=== PATIENT | male | born 1955 | race Caucasian/White ===

== ENCOUNTER 2017-08-23 12:46 | Emergency (ER) | payer MEDICARE, OTHER ==
[2017-08-23] MEDS ORDERED: Lidocaine 1% 50 ML MDV INJECT ONE (13:11)
--- NOTE | 2017-08-23 13:12 | EDM.PDOC ---
ED HPI GENERAL MEDICAL PROBLEM - General Chief Complaint: Upper Extremity Injury/Pain Stated Complaint: RT RING FINGER LAC Time Seen by Provider: 08/23/17 13:07 Source of Information: Reports: Patient History Limitations: Reports: No Limitations - History of Present Illness INITIAL COMMENTS - FREE TEXT/NARRATIVE: 62-year-old male presents for evaluation amd treatment of injury to the right hand fourth finger. Reportedly the injury occurred around 11:00 today. States that the finger was smashed between a piece of pipe and a calves' head. He has a laceration to the right hand fourth finger just proximal to the PIP joint. He has full range of motion. No numbness or tingling. patient reports he is right-handed. Reports that his last tetanus was a few years ago. Onset: Today Location: Reports: Upper Extremity, Right Right Hand Pain Score (Numeric/FACES): 4 - Related Data Allergies Allergy/AdvReac Type Severity Reaction Status Date / Time codeine Allergy Itching Verified 08/23/17 13:01 Home Meds: Home Meds Naproxen Sodium 220 mg PO DAILY 08/23/17 [History] Past Medical History - Infectious Disease History Infectious Disease History: Reports: Chicken Pox, Measles, Mumps - Past Surgical History Musculoskeletal Surgical History: Reports: Other (See Below) Other Musculoskeletal Surgeries/Procedures:: rt hand surgery Social & Family History - Tobacco Use Smoking Status *Q: Current Every Day Smoker Years of Tobacco use: 40 Packs/Tins Daily: 1 - Caffeine Use Caffeine Use: Reports: Coffee - Recreational Drug Use Recreational Drug Use: No Review of Systems - Review of Systems Review Of Systems: See Below Skin: Reports: Wound (laceration to the right hand 4th finger just proximal to the PIP joint on the dorsal side) Neurological: Denies: Numbness, Tingling ED EXAM, GENERAL - Physical Exam Exam: See Below Exam Limited By: No Limitations General Appearance: Alert, WD/WN, No Apparent Distress Respiratory/Chest: No Respiratory Distress Cardiovascular: Normal Peripheral Pulses, Regular Rate, Rhythm Peripheral Pulses: 2+: Radial (R) Extremities: Normal Range of Motion (joana to make a fist, flex and extend fingers and abduct and adduct fingers of the left hand), Normal Capillary Refill Neurological: Alert, Oriented, Normal Cognition Psychiatric: Normal Affect, Normal Mood Skin Exam: Warm, Dry, Normal Color, Wound/Incision (2cm open subcutaneous laceration to the right hand 4th finger dorsal just proximal to the pip joint) ED TRAUMA EXTREMITY PROCEDURES - Laceration/Wound Repair Right Proximal Dorsal Finger Lac/Wound Length In cm: 2 Appearance: Subcutaneous, Linear Distal NVT: Neuro & Vascular Intact, No Tendon Injury Anesthetic Type: Local Local Anesthesia - Lidocaine (Xylocaine): 1% Plain Local Anesthetic Volume: 3cc Skin Prep: Chlorhexidine (Hibiciens), Saline, Sterile Drape Exploration/Debridement/Repair: Wound Explored, No Foreign Material Found Closed With: Sutures Suture Size: 4-0 # of Sutures: 5 Suture Type: Nylon, Running, Simple Sterile Dressing Applied: Nurse Tetanus Status Addressed: Yes Complications: No Course - Vital Signs Last Recorded V/S: Last Vital Signs Temp 36.4 C 08/23/17 13:02 Pulse 61 08/23/17 13:02 Resp 18 08/23/17 13:02 BP 151/95 H 08/23/17 13:02 Pulse Ox 98 08/23/17 13:02 - Orders/Labs/Meds Meds: Medications Discontinued Medications Generic Name Dose Route Start Last Admin Trade Name Elkin PRN Reason Stop Dose Admin Lidocaine HCl 50 ml 08/23/17 13:11 08/23/17 14:08 Xylocaine 1% INJECT 08/23/17 13:12 50 ml ONETIME ONE Administration - Re-Assessments/Exams Free Text/Narrative Re-Assessment/Exam: 08/23/17 13:58 5 sutures placed to the right hand fourth finger. Patient tolerated this procedure well. There were no complications. He reports his tetanus is up-to- date. Will discharge him home at this time. Discharge instructions as documented. Departure - Departure Time of Disposition: 13:58 Disposition: Home, Self-Care 01 Condition: Good Clinical Impression: Laceration - Discharge Information Instructions: Laceration Care, Adult Referrals: PCP,None [Ordering Only Provider] - Malini Kothari PA-C [Physician Clothes Model] - Forms: ED Department Discharge Additional Instructions: [id number] Tylenol or Motrin as needed for pain relief. Wash the wound with gentle soap and water twice a day. Antibacterial ointment such as Neosporin or bacitracin to the wound twice a day. Have the sutures removed in 10 days. The [facility] located on the side hospital is open 8a.m. to 5 PM Thursday through Thursday will remove the sutures for free. Please call [phone] schedule with the provider there. Recommend Maris Begum. Monitor for signs of infection such as increased swelling, redness or pus. Present to the clinic or the ER should these develop. Please return to the ER for any problems, questions or concerns.
== END 2017-08-23 14:15 | disposition home or self-care (01) ==
LOC: JD.ED 12:46
DX: S61.214A Laceration without foreign body of right ring finger without damage to nail, initial encounter (principal); F17.210 Nicotine dependence, cigarettes, uncomplicated; Z88.5 Allergy status to narcotic agent; Z79.899 Other long term (current) drug therapy; W23.1XXA Caught, crushed, jammed, or pinched between stationary objects, initial encounter
CPT/HCPCS: 12001; 99282-25; 99283-25